=== PATIENT | male | born 1955 | race Caucasian/White ===

== ENCOUNTER → 2018-02-12 | Day surgery (SDC) | payer BC ==
[~2018-02-12] MED LIST: Lactated Ringers 1,000 ML IV SCH; Midazolam 1 MG/ML 2 ML SDV ONE; Propofol 200 MG/20 ML SDV ONE
--- NOTE | 2018-02-12 18:35 | EDM.PDOC ---
ED HPI GENERAL MEDICAL PROBLEM - General Chief Complaint: Gastrointestinal Problem Stated Complaint: FOOD STUCK IN THROAT Time Seen by Provider: 02/12/18 18:20 Source of Information: Reports: Patient, RN History Limitations: Reports: Other (no old records.) - History of Present Illness INITIAL COMMENTS - FREE TEXT/NARRATIVE: 62 yo male was eating a steak and got a piece stuck in his throat. No hx of the same. Occurred in about the middle of his meal. Has mild chronic lung dz and is a current smoker. No hx of GERD. No hx of prior esophageal obstructions. This obstruction has been present for about an hour. Is visiting a resort in [place] from [place]. Denies ETOH. Onset: Today Onset Date: 02/12/18 Onset Time: 17:25 Duration: Hour(s): (1), Constant Location: Reports: Neck Quality: Reports: Pressure Severity: Moderate Improves with: Reports: None Worsens with: Reports: None Context: Reports: Other (eating steak when a piece got stuck.) Associated Symptoms: Reports: Other (unable to swallow anything, even saliva.) Treatments TELECOMMUNICATIONS ADMINISTRATOR: Reports: Other (see below) (none) ED ROS GENERAL - Review of Systems Review Of Systems: See Below Constitutional: Reports: No Symptoms HEENT: Reports: Throat Pain (pressure) Cardiovascular: Reports: No Symptoms GI/Abdominal: Reports: Other (FB in esophagus at level of voice box(perception by patient)) : Reports: No Symptoms Musculoskeletal: Reports: No Symptoms Skin: Reports: No Symptoms Neurological: Reports: No Symptoms ED EXAM, GI/ABD - Physical Exam Exam: See Below Exam Limited By: No Limitations General Appearance: Alert, WD/WN, Mild Distress, Thin Eyes: Bilateral: Normal Appearance Ears: Normal External Exam, Normal Canal, Hearing Grossly Normal Nose: Normal Inspection, Normal Mucosa, No Blood Throat/Mouth: Normal Inspection, Normal Lips, Normal Oropharynx, Normal Voice, No Airway Compromise Head: Atraumatic, Normocephalic Neck: Normal Inspection, Supple Respiratory/Chest: No Respiratory Distress, Lungs Clear, Normal Breath Sounds, No Accessory Muscle Use Cardiovascular: Regular Rate, Rhythm, No Edema GI/Abdominal Exam: Normal Bowel Sounds, Soft, Non-Tender (Male) Exam: Normal Inspection Back Exam: Normal Inspection Extremities: Normal Inspection, Normal Range of Motion, Non-Tender, No Pedal Edema Neurological: Alert, Oriented, CN II-XII Intact, Normal Cognition Psychiatric: Normal Affect, Normal Mood Skin Exam: Warm, Dry, Intact, Normal Color, No Rash Lymphatic: No Adenopathy Course - Vital Signs Text/Narrative:: Dr. Maynard called at 1830h, asked to call in surgery crew. Last Recorded V/S: Last Vital Signs Temp 36.6 C 02/12/18 18:14 Pulse 91 02/12/18 18:14 Resp 16 02/12/18 18:14 BP 158/92 H 02/12/18 18:14 Pulse Ox 98 02/12/18 18:14 - Orders/Labs/Meds Orders: Active Orders 24 hr Category Date Time Status Lactated Ringers [Ringers, Lactated] 1,000 ml Med 02/12/18 18:30 Active IV ASDIRECTED Medication Orders Lactated Ringer's (Ringers, Lactated) 1,000 mls @ 150 mls/hr IV ASDIRECTED THOMAS Meds: Medications Generic Name Dose Route Start Last Admin Trade Name Elizabeth PRN Reason Stop Dose Admin Lactated Ringer's 1,000 mls @ 150 mls/hr 02/12/18 18:30 Ringers, Lactated IV ASDIRECTED THOMAS Departure - Departure Time of Disposition: 18:50 Disposition: Still A Patient 30 Condition: Fair Clinical Impression: Impacted esophageal foreign body Qualifiers: Encounter type: initial encounter Qualified Code(s): T18.108A - Unspecified foreign body in esophagus causing other injury, initial encounter - Discharge Information Referrals: PCP,None [Primary Care Provider] - Forms: ED Department Discharge - My Orders Last 24 Hours: My Active Orders 02/12/18 18:30 Lactated Ringers [Ringers, Lactated] 1,000 ml IV ASDIRECTED - Assessment/Plan Last 24 Hours: My Active Orders 02/12/18 18:30 Lactated Ringers [Ringers, Lactated] 1,000 ml IV ASDIRECTED
--- NOTE | 2018-02-12 20:50 | OR ---
DATE OF PROCEDURE: 02/12/2018 PREOPERATIVE DIAGNOSIS: Obstructing esophageal foreign body, steak. POSTPROCEDURE DIAGNOSES: 1. Obstructing esophageal foreign body, steak. 2. Hiatal hernia. PROCEDURE PERFORMED: Esophagogastroscopy with removal of the obstructing esophageal foreign body, steak. SURGEON: Rupesh Maynard MD. ANESTHESIA: IV anesthesia with monitored anesthesia care. INDICATION: This 62-year-old white male was eating steak this evening when a piece of steak became stuck in his esophagus. He could not get it to pass. He was having difficulty with his secretions. He came to the emergency room and was referred to surgery for removal of this obstructing esophageal foreign body. He has never had problems like this before. I counseled him for the procedure including risks and alternatives, and he gave his informed consent to proceed. DESCRIPTION OF PROCEDURE: The patient was placed in the left lateral decubitus position. IV anesthesia was administered by the Anesthesia Service. Time-out was held. The flexible video Olympus upper endoscope was passed through his mouth into his esophagus. We immediately encountered the obstructing esophageal foreign body, this was very high in the esophagus. We were going about obtaining a snare to grasp and to remove when he had a fairly violent cough and expelled the esophageal foreign body. We then passed the scope down through the esophagus into the stomach where we encountered a lot of fluid and food. We aspirated some of them free but thought the better part of valor would be to end the procedure without risking an aspiration. The scope was then brought up through a hiatal hernia, and up through the unremarkable appearing esophagus and was removed. No obvious obstructing lesions were noted in the esophagus. He is a smoker. He tolerated the procedure well. Rupesh Maynard MD /[id number]
== END ==
LOC: JP.ED 17:59 → JP.SDS 18:40
PROVIDERS: ATTEND Surgery
DX: T18.128A Food in esophagus causing other injury, initial encounter (principal); K44.9 Diaphragmatic hernia without obstruction or gangrene; J44.9 Chronic obstructive pulmonary disease, unspecified
CPT/HCPCS: 99284; J2250; J2704; J7120